=== PATIENT | male | born 1975 | race African-American/Black ===

== ENCOUNTER 2021-09-21 18:17 | Inpatient (IN) | payer MEDICARE, MEDICAID ==
[~2021-09-21] VITALS: Ht 172.7 cm; Wt 78.0 kg
[~2021-09-21 18:17] MED LIST: CHOL100018 PO; CYAN500T9 PO
[2021-09-21] MEDS ORDERED: INFLUENZA VIRUS VACCINE QVS 2021-22 (6MO+)/PF 60 MCG/0.5 ML SYRINGE IM. ONE (19:30)
[2021-09-21 19:31] LABS: GLUCOMETER DEV NAME(LOC) POC.BV
[2021-09-21 21:08] VITALS: BP 147/89
[2021-09-21] MEDS: LORazepam 2 MG TABLET PO PRN (21:10)
[2021-09-21] MEDS ORDERED: PNEUMOCOCCAL VACCINE POLYVALENT 0.5 ML VIAL [PPSV23] IM. ONE (21:30)
[2021-09-22] MEDS ORDERED: MAG HYDROX/AL HYDROX/SIMETH ES 30 ML SUSPENSION UDCUP PO PRN (05:45)
[2021-09-22] MEDS ORDERED: BENZOCAINE/MENTHOL LOZENGE PO PRN (05:45)
[2021-09-22] MEDS ORDERED: ALBUTEROL SULFATE HFA 90 MCG/PUFF 8 GM INHALER IH PRN (05:45)
[2021-09-22] MEDS ORDERED: LOPERAMIDE HCL 2 MG CAPSULE PO PRN (05:45)
[2021-09-22] MEDS ORDERED: OMEPRAZOLE 20 MG CAPSULE PO PRN (05:45)
[2021-09-22] MEDS ORDERED: PETROLATUM,WHITE 28 GM JELLY TP PRN (05:45)
[2021-09-22] MEDS ORDERED: CloNIDine HCL 0.1 MG TABLET PO PRN (05:45)
[2021-09-22] MEDS ORDERED: ONDANSETRON HCL 4 MG TABLET PO PRN (05:45)
[2021-09-22] MEDS ORDERED: MAGNESIUM HYDROXIDE SUSPENSION 30 ML UDCUP PO PRN (05:45)
[2021-09-22] MEDS ORDERED: BACITRACIN 28 GM OINTMENT TP PRN (05:45)
[2021-09-22 07:13] VITALS: BP 110/59
[2021-09-22 08:02] VITALS: BP 120/64
[2021-09-22 08:03] LABS: BASOPHILS % (AUTO) 0.3 % (0.0-2.0); EOSINOPHILS % (AUTO) 1.2 % (1.0-6.0); HEMATOCRIT 38.2 % (41-53); HEMOGLOBIN 13.8 g/dL (13.5-17.5); LYMPHOCYTES # (AUTO) 3.1 K/uL (1.0-4.8); LYMPHOCYTES % (AUTO) 34.5 % (22.0-44.0); MEAN CORPUSCULAR HEMOGLOBIN 30.6 pg (26.0-34.0); MEAN CORPUSCULAR HGB CONC 36.1 G/dL (31.0-37.0); MEAN CORPUSCULAR VOLUME 85 fL (80-100); MONOCYTES % (AUTO) 10.6 % (2.0-9.0); NEUTROPHILS # (AUTO) 4.9 K/uL (1.8-7.7); NEUTROPHILS % (AUTO) 53.4 % (40.0-70.0); PLATELET COUNT (AUTO) 110 K/uL (150-450); RED BLOOD CELL COUNT(AUTO) 4.51 MIL/uL (4.50-5.90); RED CELL DISTRIBUTION WIDTH 14.3 % (11.5-14.5)
[2021-09-22] MEDS: CHOLECALCIFEROL (VIT D3) 1,000 UNITS [25 MCG] TABLET PO SCH (08:10)
[2021-09-22] MEDS: LORazepam 2 MG TABLET PO PRN ×3 (08:10→16:22)
[2021-09-22 08:11] LABS: HEMOGLOBIN A1C 4.8 % (3.8-5.6)
[2021-09-22 08:30] LABS: ALANINE AMINOTRANSFERASE 19 U/L (12-78); ALBUMIN 3.6 g/dL (3.4-5.0); ALKALINE PHOSPHATASE 72 U/L (46-116); ANION GAP 4 mmol/L (8-16); ASPARTATE AMINOTRANSFERASE 15 U/L (15-37); BILIRUBIN,TOTAL 0.3 mg/dL (0.1-1.0); CALCIUM, TOTAL 8.4 mg/dL (8.8-10.5); CARBON DIOXIDE 29 mmol/L (22-29); CHLORIDE 108 mmol/L (98-107); CHOL/HDL RATIO 4.2 (4.2-7.3); CHOLESTEROL 154 mg/dL (131-200); CREATININE 0.76 mg/dL (0.60-1.30); GLOMERULAR FILTR. RATE CALC > 60 mL/min (>60); GLUCOSE,RANDOM 92 mg/dL (70-110); HDL CHOLESTEROL 37 mg/dL (40-60); LDL CHOL (CALC.) 96 mg/dL (0-130); POTASSIUM 3.8 mmol/L (3.5-5.1); SODIUM SERUM 141 mmol/L (136-145); THYROID STIMULATING HORMONE 0.41 uIU/mL (0.36-3.74); TOTAL PROTEIN, SERUM 6.3 g/dL (6.4-8.2); TRIGLYCERIDES 103 mg/dL (15-150); UREA NITROGEN, BLOOD 14 mg/dL (7-18)
[2021-09-22] MEDS: NICOTINE 21 MG/24 HOUR PATCH TD SCH (09:00)
[2021-09-22] MEDS: METOPROLOL TARTRATE 50 MG TABLET PO SCH (16:22)
[2021-09-22] MEDS ORDERED: BUPRENORPHINE HCL/NALOXONE HCL 2-0.5 MG SUBLINGUAL TABLET SL ONE (16:30)
[2021-09-22 16:48] VITALS: BP 132/91
[2021-09-22] MEDS: ZOLPIDEM TARTRATE 10 MG TABLET PO PRN (19:59)
[2021-09-22] MEDS: CloZAPine 100 MG TABLET PO SCH (19:59)
[2021-09-23 06:06] VITALS: BP 140/90
[2021-09-23] MEDS: CHOLECALCIFEROL (VIT D3) 1,000 UNITS [25 MCG] TABLET PO SCH (08:33)
[2021-09-23] MEDS: METOPROLOL TARTRATE 50 MG TABLET PO SCH ×2 (08:33→16:32)
[2021-09-23] MEDS: CloZAPine 100 MG TABLET PO SCH ×2 (08:34→20:19)
[2021-09-23] MEDS: BUPRENORPHINE HCL/NALOXONE HCL 2-0.5 MG SUBLINGUAL TABLET SL SCH (08:34)
[2021-09-23] MEDS: NICOTINE 21 MG/24 HOUR PATCH TD SCH (08:37)
[2021-09-23 09:18] VITALS: BP 118/70
[2021-09-23 16:05] VITALS: BP 134/90
[2021-09-23] MEDS: ZOLPIDEM TARTRATE 10 MG TABLET PO PRN (20:42)
[2021-09-24 07:13] VITALS: BP 121/65
[2021-09-24 07:25] LABS: APPEARANCE,URINE CLOUDY (CLEAR); BILIRUBIN,URINE NEGATIVE (NEGATIVE); GLUCOSE, URINE (UA) NEGATIVE (NEGATIVE); KETONES,URINE NEGATIVE (NEGATIVE); LEUKOCYTE ESTERASE ,URINE NEGATIVE (NEGATIVE); NITRATE,URINE NEGATIVE (NEGATIVE); OCCULT BLOOD,URINE NEGATIVE (NEGATIVE); PH,URINE 7.5 (5.0-8.0); PROTEIN,URINE NEGATIVE (NEGATIVE); UROBILINOGEN,URINE 0.2 mg/dL (<=1.0)
[2021-09-24 07:31] LABS: AMPHET/METH SCREEN,URINE NEGATIVE (NEGATIVE); BARBITURATE SCREEN, URINE NEGATIVE (NEGATIVE); BENZODIAZEPINES SCREEN,URINE NEGATIVE (NEGATIVE); CANNABINOID SCREEN,URINE NEGATIVE (NEGATIVE); COCAINE SCREEN,URINE NEGATIVE (NEGATIVE); METHADONE SCREEN, URINE NEGATIVE (NEGATIVE); OPIATE SCREEN,URINE NEGATIVE (NEGATIVE)
[2021-09-24 07:36] LABS: PHENCYCLIDINE SCREEN,URINE NEGATIVE (NEGATIVE)
[2021-09-24 08:16] VITALS: BP 136/85
[2021-09-24] MEDS: BUPRENORPHINE HCL/NALOXONE HCL 2-0.5 MG SUBLINGUAL TABLET SL SCH (09:29)
[2021-09-24] MEDS: METOPROLOL TARTRATE 50 MG TABLET PO SCH ×2 (09:29→16:40)
[2021-09-24] MEDS: CHOLECALCIFEROL (VIT D3) 1,000 UNITS [25 MCG] TABLET PO SCH (09:29)
[2021-09-24] MEDS: CloZAPine 100 MG TABLET PO SCH ×2 (09:29→20:30)
[2021-09-24] MEDS: NICOTINE 21 MG/24 HOUR PATCH TD SCH (09:29)
[2021-09-24] MEDS ORDERED: MELATONIN 5 MG TABLET PO PRN (13:00)
[2021-09-24] MEDS: GABAPENTIN 400 MG CAPSULE PO SCH ×2 (13:17→16:40)
[2021-09-24] MEDS: DOCUSATE SODIUM 100 MG CAPSULE PO PRN (13:22)
[2021-09-24 16:19] VITALS: BP 144/97
[2021-09-24] MEDS: IBUPROFEN 600 MG TABLET PO PRN (20:26)
[2021-09-24 20:27] VITALS: BP 133/85
[2021-09-25] MEDS: ZOLPIDEM TARTRATE 10 MG TABLET PO PRN ×2 (00:32→21:14)
[2021-09-25 04:59] VITALS: BP 116/77
[2021-09-25 08:08] VITALS: BP 122/82
[2021-09-25] MEDS: CHOLECALCIFEROL (VIT D3) 1,000 UNITS [25 MCG] TABLET PO SCH (08:48)
[2021-09-25] MEDS: METOPROLOL TARTRATE 50 MG TABLET PO SCH ×2 (08:48→15:39)
[2021-09-25] MEDS: BUPRENORPHINE HCL/NALOXONE HCL 2-0.5 MG SUBLINGUAL TABLET SL SCH (08:48)
[2021-09-25] MEDS: GABAPENTIN 400 MG CAPSULE PO SCH ×3 (08:48→15:39)
[2021-09-25] MEDS: NICOTINE 21 MG/24 HOUR PATCH TD SCH (08:49)
[2021-09-25] MEDS: CloZAPine 100 MG TABLET PO SCH ×2 (08:49→20:19)
[2021-09-25] MEDS: DOCUSATE SODIUM 100 MG CAPSULE PO PRN (13:23)
[2021-09-25] MEDS: ACETAMINOPHEN 325 MG TABLET PO PRN (16:01)
[2021-09-25 16:03] VITALS: BP 108/66
[2021-09-26 05:42] VITALS: BP 141/94
[2021-09-26 08:30] VITALS: BP 129/77
[2021-09-26] MEDS: CHOLECALCIFEROL (VIT D3) 1,000 UNITS [25 MCG] TABLET PO SCH (08:34)
[2021-09-26] MEDS: METOPROLOL TARTRATE 50 MG TABLET PO SCH ×2 (08:34→16:39)
[2021-09-26] MEDS: GABAPENTIN 400 MG CAPSULE PO SCH ×3 (08:34→16:39)
[2021-09-26] MEDS: BUPRENORPHINE HCL/NALOXONE HCL 2-0.5 MG SUBLINGUAL TABLET SL SCH (08:34)
[2021-09-26] MEDS: CloZAPine 100 MG TABLET PO SCH ×2 (08:35→20:02)
[2021-09-26] MEDS: NICOTINE 21 MG/24 HOUR PATCH TD SCH (08:37)
[2021-09-26 11:26] LABS: GLUCOMETER DEV NAME(LOC) POC.BV
[2021-09-26 16:21] VITALS: BP 122/85
[2021-09-26] MEDS: ACETAMINOPHEN 325 MG TABLET PO PRN (16:59)
[2021-09-26] MEDS: ZOLPIDEM TARTRATE 10 MG TABLET PO PRN (20:49)
[2021-09-27 00:06] VITALS: BP 127/86
[2021-09-27 08:10] VITALS: BP 134/73
[2021-09-27] MEDS: CHOLECALCIFEROL (VIT D3) 1,000 UNITS [25 MCG] TABLET PO SCH (08:47)
[2021-09-27] MEDS: GABAPENTIN 400 MG CAPSULE PO SCH ×3 (08:47→16:31)
[2021-09-27] MEDS: CloZAPine 100 MG TABLET PO SCH ×2 (08:48→20:33)
[2021-09-27] MEDS: METOPROLOL TARTRATE 50 MG TABLET PO SCH ×2 (08:49→16:31)
[2021-09-27] MEDS: BUPRENORPHINE HCL/NALOXONE HCL 2-0.5 MG SUBLINGUAL TABLET SL SCH (08:49)
[2021-09-27] MEDS: NICOTINE 21 MG/24 HOUR PATCH TD SCH (08:50)
[2021-09-27 16:07] VITALS: BP 121/62
[2021-09-27] MEDS: ZOLPIDEM TARTRATE 10 MG TABLET PO PRN (20:51)
[2021-09-27] MEDS: DOCUSATE SODIUM 100 MG CAPSULE PO SCH (21:01)
[2021-09-27] MEDS: FAMOTIDINE 20 MG TABLET PO SCH (21:01)
[2021-09-28] MEDS: HALOPERIDOL 5 MG TABLET PO PRN ×2 (02:18→18:19)
[2021-09-28 02:28] VITALS: BP 117/73
[2021-09-28] MEDS: MELOXICAM 7.5 MG TABLET PO SCH (06:26)
[2021-09-28] MEDS: CloZAPine 100 MG TABLET PO SCH ×2 (08:07→20:41)
[2021-09-28] MEDS: BUPRENORPHINE HCL/NALOXONE HCL 2-0.5 MG SUBLINGUAL TABLET SL SCH (08:07)
[2021-09-28] MEDS: METOPROLOL TARTRATE 50 MG TABLET PO SCH ×2 (08:07→16:42)
[2021-09-28] MEDS: CHOLECALCIFEROL (VIT D3) 1,000 UNITS [25 MCG] TABLET PO SCH (08:07)
[2021-09-28] MEDS: GABAPENTIN 400 MG CAPSULE PO SCH ×3 (08:07→16:42)
[2021-09-28] MEDS: NICOTINE 21 MG/24 HOUR PATCH TD SCH (08:08)
[2021-09-28] MEDS: DOCUSATE SODIUM 100 MG CAPSULE PO SCH ×2 (08:08→16:42)
[2021-09-28 08:24] VITALS: BP 128/71
[2021-09-28] MEDS: FAMOTIDINE 20 MG TABLET PO SCH (10:39)
[2021-09-28 16:03] VITALS: BP 116/71
[2021-09-29 00:18] VITALS: BP 111/88
[2021-09-29] MEDS: HALOPERIDOL 5 MG TABLET PO PRN ×2 (02:30→10:28)
[2021-09-29] MEDS: MELOXICAM 7.5 MG TABLET PO SCH (06:32)
[2021-09-29 07:05] LABS: BASOPHILS % (AUTO) 0.4 % (0.0-2.0); EOSINOPHILS % (AUTO) 0.8 % (1.0-6.0); HEMATOCRIT 43.7 % (41-53); HEMOGLOBIN 15.3 g/dL (13.5-17.5); LYMPHOCYTES # (AUTO) 2.3 K/uL (1.0-4.8); LYMPHOCYTES % (AUTO) 24.8 % (22.0-44.0); MEAN CORPUSCULAR HEMOGLOBIN 29.6 pg (26.0-34.0); MEAN CORPUSCULAR HGB CONC 34.9 G/dL (31.0-37.0); MEAN CORPUSCULAR VOLUME 85 fL (80-100); MONOCYTES # (AUTO) 1.3 K/uL (0.1-1.0); MONOCYTES % (AUTO) 13.9 % (2.0-9.0); NEUTROPHILS # (AUTO) 5.6 K/uL (1.8-7.7); NEUTROPHILS % (AUTO) 60.1 % (40.0-70.0); PLATELET COUNT (AUTO) 188 K/uL (150-450); RED BLOOD CELL COUNT(AUTO) 5.16 MIL/uL (4.50-5.90); RED CELL DISTRIBUTION WIDTH 14.2 % (11.5-14.5)
[2021-09-29] MEDS: METOPROLOL TARTRATE 50 MG TABLET PO SCH ×2 (08:08→17:01)
[2021-09-29] MEDS: DOCUSATE SODIUM 100 MG CAPSULE PO SCH ×2 (08:08→17:01)
[2021-09-29] MEDS: CloZAPine 100 MG TABLET PO SCH ×2 (08:08→20:13)
[2021-09-29] MEDS: GABAPENTIN 400 MG CAPSULE PO SCH ×3 (08:08→17:01)
[2021-09-29] MEDS: CHOLECALCIFEROL (VIT D3) 1,000 UNITS [25 MCG] TABLET PO SCH (08:09)
[2021-09-29] MEDS: BUPRENORPHINE HCL/NALOXONE HCL 2-0.5 MG SUBLINGUAL TABLET SL SCH (08:09)
[2021-09-29] MEDS: NICOTINE 21 MG/24 HOUR PATCH TD SCH (08:09)
[2021-09-29] MEDS: FAMOTIDINE 20 MG TABLET PO SCH (08:09)
[2021-09-29 08:10] VITALS: BP 139/81
[2021-09-29 16:25] VITALS: BP 144/83
[2021-09-29] MEDS ORDERED: LORazepam 2 MG/ML VIAL ONE (22:02)
[2021-09-29] MEDS ORDERED: HALOPERIDOL LACTATE 5 MG/ML VIAL ONE (22:02)
[2021-09-29] MEDS ORDERED: DiphenhydrAMINE HCL 50 MG/ML VIAL ONE (22:02)
[2021-09-29] MEDS ORDERED: LORazepam 2 MG/ML VIAL IM ONE (22:15)
[2021-09-29] MEDS ORDERED: DiphenhydrAMINE HCL 50 MG/ML VIAL IM ONE (22:15)
[2021-09-29] MEDS ORDERED: HALOPERIDOL LACTATE 5 MG/ML VIAL IM ONE (22:15)
[2021-09-30] MEDS ORDERED: LORazepam 2 MG/ML VIAL IM ONE (01:00)
[2021-09-30] MEDS ORDERED: HALOPERIDOL LACTATE 5 MG/ML VIAL IM ONE (01:00)
[2021-09-30 07:30] VITALS: BP 152/96
[2021-09-30] MEDS: MELOXICAM 7.5 MG TABLET PO SCH (07:33)
[2021-09-30 08:21] VITALS: BP 128/95
[2021-09-30] MEDS: METOPROLOL TARTRATE 50 MG TABLET PO SCH ×2 (08:44→17:00)
[2021-09-30] MEDS: NICOTINE 21 MG/24 HOUR PATCH TD SCH (08:44)
[2021-09-30] MEDS: HALOPERIDOL 5 MG TABLET PO PRN (08:44)
[2021-09-30] MEDS: BUPRENORPHINE HCL/NALOXONE HCL 2-0.5 MG SUBLINGUAL TABLET SL SCH (08:45)
[2021-09-30] MEDS: CHOLECALCIFEROL (VIT D3) 1,000 UNITS [25 MCG] TABLET PO SCH (08:45)
[2021-09-30] MEDS: CloZAPine 100 MG TABLET PO SCH ×2 (08:45→21:41)
[2021-09-30] MEDS: FAMOTIDINE 20 MG TABLET PO SCH (08:45)
[2021-09-30] MEDS: GABAPENTIN 400 MG CAPSULE PO SCH ×3 (08:45→21:41)
[2021-09-30] MEDS: DOCUSATE SODIUM 100 MG CAPSULE PO SCH ×2 (08:45→21:41)
[2021-09-30 11:50] VITALS: BP 132/75
[2021-09-30 22:17] VITALS: BP 124/82
[2021-10-01 06:01] VITALS: BP 127/78
[2021-10-01] MEDS: MELOXICAM 7.5 MG TABLET PO SCH (06:42)
[2021-10-01 09:00] VITALS: BP 114/88
[2021-10-01] MEDS: CHOLECALCIFEROL (VIT D3) 1,000 UNITS [25 MCG] TABLET PO SCH (09:14)
[2021-10-01] MEDS: GABAPENTIN 400 MG CAPSULE PO SCH ×3 (09:14→16:03)
[2021-10-01] MEDS: METOPROLOL TARTRATE 50 MG TABLET PO SCH ×2 (09:14→16:03)
[2021-10-01] MEDS: BUPRENORPHINE HCL/NALOXONE HCL 2-0.5 MG SUBLINGUAL TABLET SL SCH (09:14)
[2021-10-01] MEDS: DOCUSATE SODIUM 100 MG CAPSULE PO SCH ×2 (09:15→16:03)
[2021-10-01] MEDS: FAMOTIDINE 20 MG TABLET PO SCH (09:15)
[2021-10-01] MEDS: CloZAPine 100 MG TABLET PO SCH ×2 (09:15→21:16)
[2021-10-01] MEDS: NICOTINE 21 MG/24 HOUR PATCH TD SCH (09:15)
[2021-10-01 16:16] VITALS: BP 118/78
[2021-10-01] MEDS: ZOLPIDEM TARTRATE 10 MG TABLET PO PRN (21:16)
[2021-10-02] MEDS: MELOXICAM 7.5 MG TABLET PO SCH (06:23)
[2021-10-02 06:55] VITALS: BP 110/80
[2021-10-02] MEDS: CHOLECALCIFEROL (VIT D3) 1,000 UNITS [25 MCG] TABLET PO SCH (08:09)
[2021-10-02] MEDS: FAMOTIDINE 20 MG TABLET PO SCH (08:09)
[2021-10-02] MEDS: BUPRENORPHINE HCL/NALOXONE HCL 2-0.5 MG SUBLINGUAL TABLET SL SCH (08:09)
[2021-10-02] MEDS: DOCUSATE SODIUM 100 MG CAPSULE PO SCH ×2 (08:09→16:01)
[2021-10-02] MEDS: GABAPENTIN 400 MG CAPSULE PO SCH ×3 (08:09→16:01)
[2021-10-02] MEDS: CloZAPine 100 MG TABLET PO SCH ×2 (08:09→20:02)
[2021-10-02] MEDS: METOPROLOL TARTRATE 50 MG TABLET PO SCH ×2 (08:10→16:01)
[2021-10-02] MEDS: NICOTINE 21 MG/24 HOUR PATCH TD SCH (08:11)
[2021-10-02 09:17] VITALS: BP 103/73
[2021-10-02] MEDS: IBUPROFEN 600 MG TABLET PO PRN (10:50)
[2021-10-02 16:03] VITALS: BP 117/75
[2021-10-02] MEDS: ACETAMINOPHEN 325 MG TABLET PO PRN (17:02)
[2021-10-02] MEDS: ZOLPIDEM TARTRATE 10 MG TABLET PO PRN (21:04)
[2021-10-03 00:26] VITALS: BP 118/70
[2021-10-03] MEDS: MELOXICAM 7.5 MG TABLET PO SCH (06:52)
[2021-10-03] MEDS: FAMOTIDINE 20 MG TABLET PO SCH (08:23)
[2021-10-03] MEDS: METOPROLOL TARTRATE 50 MG TABLET PO SCH ×2 (08:23→16:32)
[2021-10-03] MEDS: DOCUSATE SODIUM 100 MG CAPSULE PO SCH ×2 (08:23→16:33)
[2021-10-03] MEDS: CHOLECALCIFEROL (VIT D3) 1,000 UNITS [25 MCG] TABLET PO SCH (08:24)
[2021-10-03] MEDS: BUPRENORPHINE HCL/NALOXONE HCL 2-0.5 MG SUBLINGUAL TABLET SL SCH (08:24)
[2021-10-03] MEDS: CloZAPine 100 MG TABLET PO SCH ×2 (08:24→20:42)
[2021-10-03] MEDS: GABAPENTIN 400 MG CAPSULE PO SCH ×3 (08:24→16:33)
[2021-10-03] MEDS: NICOTINE 21 MG/24 HOUR PATCH TD SCH (08:25)
[2021-10-03 10:07] VITALS: BP 136/75
[2021-10-03 16:14] VITALS: BP 126/85
[2021-10-03] MEDS: ZOLPIDEM TARTRATE 10 MG TABLET PO PRN (21:35)
[2021-10-04 01:40] VITALS: BP 116/77
[2021-10-04] MEDS: MELOXICAM 7.5 MG TABLET PO SCH (06:45)
[2021-10-04] MEDS: NICOTINE 21 MG/24 HOUR PATCH TD SCH (07:50)
[2021-10-04] MEDS: BUPRENORPHINE HCL/NALOXONE HCL 2-0.5 MG SUBLINGUAL TABLET SL SCH (07:51)
[2021-10-04] MEDS: FAMOTIDINE 20 MG TABLET PO SCH (07:51)
[2021-10-04] MEDS: CHOLECALCIFEROL (VIT D3) 1,000 UNITS [25 MCG] TABLET PO SCH (07:51)
[2021-10-04] MEDS: CloZAPine 100 MG TABLET PO SCH ×2 (07:51→20:32)
[2021-10-04] MEDS: GABAPENTIN 400 MG CAPSULE PO SCH ×3 (07:51→16:27)
[2021-10-04] MEDS: METOPROLOL TARTRATE 50 MG TABLET PO SCH ×2 (07:52→16:27)
[2021-10-04] MEDS: DOCUSATE SODIUM 100 MG CAPSULE PO SCH ×2 (07:52→16:27)
[2021-10-04 08:22] VITALS: BP 107/61
[2021-10-04 08:36] LABS: GLUCOMETER DEV NAME(LOC) POC.BV
[2021-10-04 16:21] VITALS: BP_SYST 115; BP_DIAS 0; BP_DIAS 70
[2021-10-04] MEDS: ACETAMINOPHEN 325 MG TABLET PO PRN (17:02)
[2021-10-04 20:16] VITALS: BP 123/79
[2021-10-04] MEDS: IBUPROFEN 600 MG TABLET PO PRN (20:19)
[2021-10-04] MEDS: ZOLPIDEM TARTRATE 10 MG TABLET PO PRN (21:17)
[2021-10-05 06:22] VITALS: BP 110/72
[2021-10-05] MEDS: MELOXICAM 7.5 MG TABLET PO SCH (06:43)
[2021-10-05] MEDS: NICOTINE 21 MG/24 HOUR PATCH TD SCH (07:26)
[2021-10-05] MEDS: CHOLECALCIFEROL (VIT D3) 1,000 UNITS [25 MCG] TABLET PO SCH (07:26)
[2021-10-05] MEDS: FAMOTIDINE 20 MG TABLET PO SCH (07:26)
[2021-10-05] MEDS: METOPROLOL TARTRATE 50 MG TABLET PO SCH ×2 (07:27→16:28)
[2021-10-05] MEDS: DOCUSATE SODIUM 100 MG CAPSULE PO SCH ×2 (07:27→16:28)
[2021-10-05] MEDS: BUPRENORPHINE HCL/NALOXONE HCL 2-0.5 MG SUBLINGUAL TABLET SL SCH (07:27)
[2021-10-05] MEDS: GABAPENTIN 400 MG CAPSULE PO SCH ×3 (07:27→16:28)
[2021-10-05] MEDS: CloZAPine 100 MG TABLET PO SCH ×2 (07:27→20:41)
[2021-10-05 08:07] VITALS: BP 115/75
[2021-10-05 16:03] VITALS: BP 112/73
[2021-10-05] MEDS ORDERED: NICOTINE POLACRILEX 2 MG LOZENGE PO PRN (16:45)
[2021-10-05 18:46] VITALS: BP 118/67
[2021-10-05] MEDS: IBUPROFEN 600 MG TABLET PO PRN (18:48)
[2021-10-05] MEDS: ZOLPIDEM TARTRATE 10 MG TABLET PO PRN (21:13)
[2021-10-06] MEDS: MELOXICAM 7.5 MG TABLET PO SCH (07:13)
[2021-10-06] MEDS: FAMOTIDINE 20 MG TABLET PO SCH (08:12)
[2021-10-06] MEDS: DOCUSATE SODIUM 100 MG CAPSULE PO SCH ×2 (08:12→17:15)
[2021-10-06] MEDS: BUPRENORPHINE HCL/NALOXONE HCL 2-0.5 MG SUBLINGUAL TABLET SL SCH (08:12)
[2021-10-06] MEDS: CHOLECALCIFEROL (VIT D3) 1,000 UNITS [25 MCG] TABLET PO SCH (08:12)
[2021-10-06] MEDS: GABAPENTIN 400 MG CAPSULE PO SCH ×3 (08:13→17:15)
[2021-10-06] MEDS: CloZAPine 100 MG TABLET PO SCH ×2 (08:13→20:29)
[2021-10-06] MEDS: NICOTINE 21 MG/24 HOUR PATCH TD SCH (08:13)
[2021-10-06] MEDS: METOPROLOL TARTRATE 50 MG TABLET PO SCH ×2 (08:13→17:15)
[2021-10-06 08:58] VITALS: BP 129/73
[2021-10-06 16:20] VITALS: BP 100/61
[2021-10-06] MEDS: ZOLPIDEM TARTRATE 10 MG TABLET PO PRN (20:32)
[2021-10-06] MEDS: HALOPERIDOL 5 MG TABLET PO PRN (22:21)
[2021-10-07 00:04] VITALS: BP 102/69
[2021-10-07] MEDS: MELOXICAM 7.5 MG TABLET PO SCH (06:35)
[2021-10-07 08:05] VITALS: BP 124/79
[2021-10-07] MEDS: CHOLECALCIFEROL (VIT D3) 1,000 UNITS [25 MCG] TABLET PO SCH (08:28)
[2021-10-07] MEDS: CloZAPine 100 MG TABLET PO SCH (08:28)
[2021-10-07] MEDS: NICOTINE 21 MG/24 HOUR PATCH TD SCH (08:28)
[2021-10-07] MEDS: FAMOTIDINE 20 MG TABLET PO SCH (08:29)
[2021-10-07] MEDS: DOCUSATE SODIUM 100 MG CAPSULE PO SCH (08:29)
[2021-10-07] MEDS: METOPROLOL TARTRATE 50 MG TABLET PO SCH (08:29)
[2021-10-07] MEDS: BUPRENORPHINE HCL/NALOXONE HCL 2-0.5 MG SUBLINGUAL TABLET SL SCH (08:29)
[2021-10-07] MEDS: GABAPENTIN 400 MG CAPSULE PO SCH ×2 (08:29→12:28)
[2021-10-07] MEDS ORDERED: GABA-1201 PO (10:49)
[2021-10-07] MEDS ORDERED: CLOZ100T32 PO ×2 (10:49)
[2021-10-07] MEDS ORDERED: DOCU-119 PO (13:20)
[2021-10-07] MEDS ORDERED: CLOZ100T31 PO ×2 (13:20)
== END 2021-10-07 14:50 | disposition home or self-care (01) | DRG 885 ==
LOC: B2X 19:32
PROVIDERS: ADMIT Psychiatry & Neurology Psychiatry; ATTEND Psychiatry & Neurology Psychiatry
DX: F25.9 Schizoaffective disorder, unspecified (principal); R45.851 Suicidal ideations; I10 Essential (primary) hypertension; F10.10 Alcohol abuse, uncomplicated; E55.9 Vitamin D deficiency, unspecified; G47.00 Insomnia, unspecified; F41.9 Anxiety disorder, unspecified; K59.00 Constipation, unspecified; Z20.822 Contact with and (suspected) exposure to COVID-19; F19.10 Other psychoactive substance abuse, uncomplicated; Z72.0 Tobacco use; Z71.6 Tobacco abuse counseling
CPT/HCPCS: 80053; 80061; 80307; 81003; 83036; 84439; 84443; 85025; 90686; J1200; J1630; J2060; Q0162; Q9967